=== PATIENT | female | born 1980 | race Caucasian/White ===

== ENCOUNTER 2020-02-17 10:58 | Emergency (ER) | payer OTHER ==
[~2020-02-17] VITALS: Ht 170.2 cm; Wt 81.0 kg
[2020-02-17 11:39] LABS: BASO % 1 % (0-3); EOS # 0.1 x10^3/uL (0.0-0.7); EOS % 2 % (0-3); HEMATOCRIT 41.6 % (36.0-47.0); HEMOGLOBIN 14.2 g/dL (12.0-15.5); LYMPH # 1.9 x10^3/uL (1.0-4.8); LYMPH % 33 % (24-48); MEAN CORPUSCULAR HEMOGLOBIN 28 pg (25-35); MEAN CORPUSCULAR HGB CONC 34 g/dL (31-37); MEAN CORPUSCULAR VOLUME 83 fL (79-100); MONO # 0.5 x10^3/uL (0.0-1.1); MONO % 8 % (0-9); NEUT # 3.2 x10^3uL (1.8-7.7); NEUT % 56 % (31-73); PLATELET COUNT 236 x10^3/uL (140-400); RED BLOOD COUNT 5.02 x10^6/uL (3.50-5.40); RED CELL DISTRIBUTION WIDTH 13.8 % (11.5-14.5); WHITE BLOOD COUNT 5.7 x10^3/uL (4.0-11.0)
--- NOTE | 2020-02-17 11:41 | RAD ---
INDICATION: Palpitations COMPARISON: None. FINDINGS: 2 view of chest obtained. No focal airspace consolidation. Cardiomediastinal contour unremarkable. No acute osseous abnormality. IMPRESSION: * No focal airspace consolidation or edema. Electronically signed by: Jesus Manuel Segura MD (02/17/2020 11:39 AM) [id number]
--- NOTE | 2020-02-17 11:43 | EKG ---
[address] [address] Test Date: 2020-02-17 Test Time: 11:29:55 Pat Name: FREDY CARTAGENA Department: Room: Gender: F [employer] Instructor: : 1980 Requested By: HODAN MURO Order Number: [id number] Reading MD: Darrin Ma MD Measurements Intervals [place] Rate: 75 P: 43 OH: 136 QRS: 74 QRSD: 90 T: 42 QT: 378 QTc: 425 Interpretive Statements SINUS RHYTHM Electronically Signed On 02-20-2020 14:17:54 CDT by Darrin Ma MD
[2020-02-17 11:48] LABS: CALCIUM 9.1 mg/dL (8.5-10.1); CREATININE 0.7 mg/dL (0.6-1.0); GFR 92.7; POTASSIUM 3.6 mmol/L (3.5-5.1)
[2020-02-17 11:55] LABS: ALBUMIN 3.9 g/dL (3.4-5.0); TOTAL BILIRUBIN 1.4 mg/dL (0.2-1.0); TOTAL PROTEIN 7.7 g/dL (6.4-8.2)
--- NOTE | 2020-02-17 11:58 | PHYS DOC ---
Past History Past Medical History: Other Additional Past Medical Histor: Hashimotos Past Surgical History: Cholecystectomy Additional Past Surgical Histo: knee Alcohol Use: None General Adult EDM: Chief Complaint: Palpitations HPI: HPI: 39-year-old female presents with various symptoms including palpitations. She has had intermittent temperature regulation issues over the last several days. She has also had intermittent palpitations, but she wears a heart monitor watch and her heart rate has been normal. She admits to drinking more caffeine over the last 30 days than normal. She has tried to cut back the last couple of days and has had headaches from it. She has had some mild shortness of breath intermittently as well. The patient just does not know what all the symptoms are about. She does admit that she has some anxiety and the symptoms tend to be associated with that when she has those episodes. She also tells me that she is on levothyroxine and just had her level checked yesterday. She has not had a checked in about a year. She has been on thyroid replacement for 3 years. She denies fever. No history of cardiac problems. No other significant medical history other than hypothyroid. Review of Systems: Review of Systems: Constitutional: Denies fever or chills Eyes: Denies change in visual acuity HENT: Denies nasal congestion or sore throat Respiratory: Shortness of breath Cardiovascular: Palpitations GI: Denies abdominal pain, nausea, vomiting, bloody stools or diarrhea : Denies dysuria Musculoskeletal: Denies back pain or joint pain Integument: Denies rash Neurologic: Denies headache, focal weakness or sensory changes Endocrine: Denies polyuria or polydipsia Lymphatic: Denies swollen glands Psychiatric: Denies depression or anxiety Heart Score: HEART Score for Chest Pain: HEART Score for Chest Pain Response (Comments) Value History Slighlty/Non-Suspicious 0 ECG Normal 0 Age < 45 0 Risk Factors No Risk Factors 0 Troponin < Normal Limit 0 Total 0 Risk Factors: Risk Factors: DM, Current or recent (<one month) smoker, HTN, HLP, family history of CAD, obesity. Risk Scores: Score 0 - 3: 2.5% MACE over next 6 weeks - Discharge Home Score 4 - 6: 20.3% MACE over next 6 weeks - Admit for Clinical Observation Score 7 - 10: 72.7% MACE over next 6 weeks - Early Invasive Strategies Physical Exam: PE: Constitutional: Well developed, well nourished, no acute distress, non-toxic appearance. [] HENT: Normocephalic, atraumatic, bilateral external ears normal, oropharynx moist, no oral exudates, nose normal. [] Eyes: PERRLA, EOMI, conjunctiva normal, no discharge. [] Neck: Normal range of motion, no tenderness, supple, no stridor. [] Cardiovascular: Heart rate regular rhythm, no murmur [] Lungs & Thorax: Bilateral breath sounds clear to auscultation [] Abdomen: Bowel sounds normal, soft, no tenderness, no masses, no pulsatile masses. [] Skin: Warm, dry, no erythema, no rash. [] Back: No tenderness, no CVA tenderness. [] Extremities: No tenderness, no cyanosis, no clubbing, ROM intact, no edema. [] Neurologic: Alert and oriented X 3, normal motor function, normal sensory function, no focal deficits noted. [] Psychologic: Affect normal, judgement normal, mood concerned. [] Current Patient Data: Labs: Laboratory Tests Test 02/17/20 11:10 White Blood Count 5.7 x10^3/uL (4.0-11.0) Red Blood Count 5.02 x10^6/uL (3.50-5.40) Hemoglobin 14.2 g/dL (12.0-15.5) Hematocrit 41.6 % (36.0-47.0) Mean Corpuscular Volume 83 fL (79-100) Mean Corpuscular Hemoglobin 28 pg (25-35) Mean Corpuscular Hemoglobin Concent 34 g/dL (31-37) Red Cell Distribution Width 13.8 % (11.5-14.5) Platelet Count 236 x10^3/uL (140-400) Neutrophils (%) (Auto) 56 % (31-73) Lymphocytes (%) (Auto) 33 % (24-48) Monocytes (%) (Auto) 8 % (0-9) Eosinophils (%) (Auto) 2 % (0-3) Basophils (%) (Auto) 1 % (0-3) Neutrophils # (Auto) 3.2 x10^3uL (1.8-7.7) Lymphocytes # (Auto) 1.9 x10^3/uL (1.0-4.8) Monocytes # (Auto) 0.5 x10^3/uL (0.0-1.1) Eosinophils # (Auto) 0.1 x10^3/uL (0.0-0.7) Basophils # (Auto) 0.0 x10^3/uL (0.0-0.2) Sodium Level 140 mmol/L (136-145) Potassium Level 3.6 mmol/L (3.5-5.1) Chloride Level 102 mmol/L (98-107) Carbon Dioxide Level 30 mmol/L (21-32) Anion Gap 8 (6-14) Blood Urea Nitrogen 9 mg/dL (7-20) Creatinine 0.7 mg/dL (0.6-1.0) Estimated GFR (Cockcroft-Gault) 92.7 BUN/Creatinine Ratio 13 (6-20) Glucose Level 114 mg/dL (70-99) H Calcium Level 9.1 mg/dL (8.5-10.1) Total Bilirubin Pending Aspartate Amino Transferase (AST) Pending Alanine Aminotransferase (ALT) Pending Alkaline Phosphatase Pending Total Protein Pending Albumin Pending Albumin/Globulin Ratio Pending Vital Signs: Vital Signs Date Time Temp Pulse Resp B/P (MAP) Pulse Ox O2 Delivery O2 Flow Rate FiO2 02/17/20 11:05 98.9 78 16 121/70 (87) 98 Room Air EKG: EKG: Sinus rhythm, rate 75, normal axis, no ST elevations or depressions [] Radiology/Procedures: Radiology/Procedures: [] Impressions: INDICATION: Palpitations COMPARISON: None. FINDINGS: 2 view of chest obtained. No focal airspace consolidation. Cardiomediastinal contour unremarkable. No acute osseous abnormality. IMPRESSION: * No focal airspace consolidation or edema. Electronically signed by: [place] Segura MD (02/17/2020 11:39 AM) [id number] DICTATED AND SIGNED BY: [place] SEGURA MD DATE: 02/17/20 1139 CC: HODAN MURO DO; PCP,NO ~ Course & Med Decision Making: Course & Med Decision Making Pertinent Labs and Imaging studies reviewed. (See chart for details) The patient's EKG is unremarkable. Her chest x-ray is negative for acute findings. Her labs are unremarkable. Her troponin is negative. The patient's urinalysis does suggest UTI with greater than 40 white cells and leukocyte esterase. I will treat her for 5 days of Macrobid. The patient's symptoms could be related to her thyroid. Since she just had her labs drawn yesterday, I told her it was important to follow these up next week. This does not appear to be cardiopulmonary in origin. There is also an outside chance that this is COVID-19 as it also has unusual clusters of symptoms. She is stable for discharge at this time. [] Dragon Disclaimer: Kitty Disclaimer: This electronic medical record was generated, in whole or in part, using a voice recognition dictation system. Departure Departure: Impression: Primary Impression: Palpitations Additional Impression: UTI (urinary tract infection) Qualified Codes: N30.01 - Acute cystitis with hematuria Disposition: HOME/RESIDENCE PRIOR TO ADM Condition: STABLE Referrals: [facility] (PCP) Patient Instructions: Palpitations, Bvni-ci-Jcix Scripts Nitrofurantoin Monohyd/M-Cryst (MACROBID 100 MG CAPSULE) 100 Mg Capsule 1 CAP PO BID for UTI for 5 Days, #10 CAP 0 Refills Prov: HODAN MURO DO 02/17/20 HODAN MURO DO February 17, 2020 11:58
[2020-02-17 12:50] VITALS: BP 104/65
[2020-02-17 12:53] LABS: BACTERIA,URINE MOD /HPF (0-FEW); BILIRUBIN,URINE NEG (NEG); CLARITY,URINE CLOUDY; COLOR,URINE YELLOW; GLUCOSE,URINE NEG (NEG); NITRITE,URINE NEG (NEG); UROBILINOGEN,URINE 0.2 mg/dL (0.2 mg/dL); WBC,URINE >40 /HPF (0-4)
[2020-02-17 12:54] LABS: SQUAMOUS EPITHELIAL CELL,UR MOD /LPF
[2020-02-17] MEDS ORDERED: NITR100C62 PO (12:57)
== END 2020-02-17 13:00 | disposition home or self-care (01) ==
LOC: ER 10:58
DX: N30.01 Acute cystitis with hematuria (principal); R00.2 Palpitations; R51 Headache; R06.02 Shortness of breath; Z90.49 Acquired absence of other specified parts of digestive tract; Z98.890 Other specified postprocedural states
CPT/HCPCS: 36415; 71046; 80053; 81001; 84484; 85025; 87086; 93005; 99285

== ENCOUNTER 2020-05-05 21:32 | Emergency (ER) | payer OTHER ==
[~2020-05-05] VITALS: Ht 170.2 cm; Wt 81.0 kg
[~2020-05-05 21:32] MED LIST: NITR100C62 PO
[2020-05-05 22:24] LABS: BACTERIA,URINE 0 /HPF (0-FEW); BILIRUBIN,URINE NEG (NEG); CLARITY,URINE CLEAR; COLOR,URINE YELLOW; GLUCOSE,URINE NEG (NEG); NITRITE,URINE NEG (NEG); RBC,URINE OCC /HPF (0-2); SQUAMOUS EPITHELIAL CELL,UR MOD /LPF; UROBILINOGEN,URINE 0.2 mg/dL (0.2 mg/dL); WBC,URINE OCC /HPF (0-4)
[2020-05-05 22:26] LABS: U PREG PATIENT NEGATIVE (NEG)
--- NOTE | 2020-05-06 00:12 | PHYS DOC ---
Past History Past Medical History: Hypothyroid, Other Additional Past Medical Histor: Hashimotos Past Surgical History: Cholecystectomy Additional Past Surgical Histo: knee Alcohol Use: None General Adult EDM: Chief Complaint: URINARY FREQUENCY HPI: HPI: 40-year-old female past medical history significant for Lidya's thyroiditis with hypothyroidism, presents to the ED with complaints of multiple, intermittent episodes, of right flank pain that was "throbbing," lasting for 15- 20 seconds and " it felt like he needed to pee." Reports history of UTI 2 months ago and states she has increased urinary frequency but no pain/burning/dysuria. Reports symptoms have resolved but she wanted to get checked out. no FH DM. ROS: Denies associated fever, chills, cough, sore throat, nausea, vomiting, diarrhea, hematuria, vaginal bleeding, abdominal pain, chest pain, dyspnea, hemoptysis, leg swelling, rash, joint swelling or pain, polydipsia, headache, neck stiffness, diaphoresis. Allergies: Allergies: Allergies Coded Allergies Type Severity Reaction Last Updated Verified Penicillins Allergy Unknown 02/17/20 Yes Sulfa (Sulfonamide Antibiotics) Allergy Unknown 02/17/20 Yes Physical Exam: PE: Constitutional: Well developed, well nourished, no acute distress, non-toxic appearance. [] HENT: Normocephalic, atraumatic, bilateral external ears normal, oropharynx moist, no oral exudates, nose normal. [] Eyes: EOMI, conjunctiva normal, no discharge. [] Neck: Normal range of motion, no tenderness, supple, no stridor. [] Cardiovascular:Heart rate regular rhythm, no murmur [] Lungs & Thorax: Bilateral breath sounds clear to auscultation [] Abdomen: Bowel sounds normal, soft, no tenderness, no masses, no pulsatile mass es. [] Skin: Warm, dry, no erythema, no rash. [] Back: No tenderness, no CVA tenderness. [] Asymptomatic on initial evaluation Extremities: No tenderness, no cyanosis, no clubbing, ROM intact, no edema. [] Neurologic: Alert and oriented X 3, normal motor function, normal sensory function, no focal deficits noted. [] Psychologic: Affect normal, judgement normal, mood normal. [] Current Patient Data: Labs: Laboratory Tests Test 05/05/20 21:35 Urine Collection Type Unknown Urine Color Yellow Urine Clarity Clear Urine pH 5.5 Urine Specific [place] >=1.030 Urine Protein Neg (NEG-TRACE) Urine Glucose (UA) Neg mg/dL (NEG) Urine Ketones (Stick) Neg mg/dL (NEG) Urine Blood Small (NEG) Urine Nitrite Neg (NEG) Urine Bilirubin Neg (NEG) Urine Urobilinogen Dipstick 0.2 mg/dL (0.2 mg/dL) Urine Leukocyte Esterase Neg (NEG) Urine RBC Occ /HPF (0-2) Urine WBC Occ /HPF (0-4) Urine Squamous Epithelial Cells Mod /LPF Urine Bacteria 0 /HPF (0-FEW) Urine Test Negative (NEG) Vital Signs: Vital Signs Date Time Temp Pulse Resp B/P (MAP) Pulse Ox O2 Delivery O2 Flow Rate FiO2 05/05/20 21:32 98.1 69 18 118/64 (82) 97 Room Air EKG: EKG: [] Radiology/Procedures: Radiology/Procedures: [] Course & Med Decision Making: Course & Med Decision Making Pertinent Labs and Imaging studies reviewed. (See chart for details) Concern for right flank pain, pain did recur one time in ED and was reproducible-located between right lower ribs. Glucose is normal, urinalysis with no signs of infection. I suspect MSK origin vs possible stone in a well appearing female, in no distress. Life-threatening processes were considered but are low suspicion given patient's history and physical exam. Will treat conservatively with Lidoderm patch and muscle relaxers. Strict ED return precautions were given for severe pain, fever or dehydration. Encourage PMD follow-up in 24 to 40 hours. All patient's questions were answered and she was stable at time of discharge. Differential includes aortic dissection, aortic aneurysm, acute coronary syndrome, surgical abdomen (appendicitis, cholecystitis, ischemic bowel, strangulated hernia, etc), bowel obstruction or volvulus, bladder outlet obstruction, inflammatory bowel disease, peptic ulcer disease, sepsis, diverticular disease, ureterolithiasis, nephrolithiasis, I spoken with the patient and her caregivers. I explained the patient's condition, diagnoses and treatment plan based on the information available to me at this time. I have answered the patient and her caregiver's questions and addressed any concerns. The patient and her caregivers have a good understanding of patient's diagnosis, condition and treatment plan as can be expected at this point. Vital signs have been stable. Patient's condition is stable and appropriate for discharge from the emergency department. Patient will pursue further outpatient evaluation with primary care physician or other designated or consulting physician as outlined in the discharge i nstructions. The patient and/or caregivers are agreeable to this plan of care and follow-up instructions have been explained in detail. The patient and/or caregivers have received these instructions in written form and have expressed an understanding of the discharge instructions. The patient and/or caregivers are aware that any significant change of condition or worsening of symptoms should prompt immediate return to this or the closest emergency department or call to 911. [employer] Disclaimer: [employer] Disclaimer: This electronic medical record was generated, in whole or in part, using a voice recognition dictation system. Departure Departure: Impression: Primary Impression: Right flank pain Additional Impression: Increased urinary frequency Disposition: HOME/RESIDENCE PRIOR TO ADM Condition: STABLE Referrals: PCP,UNKNOWN (PCP) ERICK DONIS MD Patient Instructions: Flank Pain Scripts Lidocaine/Menthol (LIDOPATCH) 1 Each Adh..patch 1 CURT TP BID for pain for 30 Days, #8 EACH 0 Refills Prov: ALEX RODRIGUEZ DO 05/06/20 Cyclobenzaprine Hcl (CYCLOBENZAPRINE HCL) 5 Mg Tablet 1 TAB PO TID for pain, #20 TAB Prov: ALEX RODRIGUEZ DO 05/06/20 Justification of Admission: Justification of Admission: Justification of Admission Dx: N/A ALEX RODRIGUEZ DO May 06, 2020 00:12
[2020-05-06 01:00] VITALS: BP 115/64
[2020-05-06] MEDS ORDERED: LIDO1ADH TP (01:01)
[2020-05-06] MEDS ORDERED: CYCL5TAB PO (01:01)
== END 2020-05-06 01:10 | disposition home or self-care (01) ==
LOC: ER 21:32
DX: R10.9 Unspecified abdominal pain (principal); R35.0 Frequency of micturition; E03.9 Hypothyroidism, unspecified; Z87.440 Personal history of urinary (tract) infections; Z90.49 Acquired absence of other specified parts of digestive tract; Z88.0 Allergy status to penicillin; Z88.2 Allergy status to sulfonamides
CPT/HCPCS: 81001; 81025; 82947; 99283

== ENCOUNTER 2020-06-28 13:35 | Emergency (ER) | payer OTHER ==
[~2020-06-28] VITALS: Ht 167.6 cm; Wt 71.6 kg
[~2020-06-28 13:35] MED LIST changes: +CYCL5TAB PO; +LIDO1ADH TP
[2020-06-28 14:02] VITALS: BP 131/75
[2020-06-28] MEDS ORDERED: IV NORMAL SALINE 1,000ML 1,000 ML IV ONE ×3 (15:00→17:45)
[2020-06-28] MEDS ORDERED: ONDANSETRON PF 4 MG/2 ML VIAL. IVP ONE (15:00)
[2020-06-28 15:08] LABS: BASO % 0 % (0-3); EOS # 0.1 x10^3/uL (0.0-0.7); EOS % 1 % (0-3); HEMATOCRIT 49.1 % (36.0-47.0); HEMOGLOBIN 16.4 g/dL (12.0-15.5); LYMPH # 1.3 x10^3/uL (1.0-4.8); LYMPH % 13 % (24-48); MEAN CORPUSCULAR HEMOGLOBIN 29 pg (25-35); MEAN CORPUSCULAR HGB CONC 34 g/dL (31-37); MEAN CORPUSCULAR VOLUME 86 fL (79-100); MONO # 1.1 x10^3/uL (0.0-1.1); MONO % 11 % (0-9); NEUT # 7.6 x10^3uL (1.8-7.7); NEUT % 75 % (31-73); PLATELET COUNT 268 x10^3/uL (140-400); RED BLOOD COUNT 5.72 x10^6/uL (3.50-5.40); RED CELL DISTRIBUTION WIDTH 13.4 % (11.5-14.5); WHITE BLOOD COUNT 10.1 x10^3/uL (4.0-11.0)
[2020-06-28 15:14] LABS: CALCIUM 10.1 mg/dL (8.5-10.1); CREATININE 0.9 mg/dL (0.6-1.0); POTASSIUM 3.9 mmol/L (3.5-5.1)
[2020-06-28 15:20] LABS: ALBUMIN 4.6 g/dL (3.4-5.0); ALBUMIN/GLOBULIN RATIO 0.9 (1.0-1.7); TOTAL BILIRUBIN 2.4 mg/dL (0.2-1.0); TOTAL PROTEIN 9.7 g/dL (6.4-8.2)
--- NOTE | 2020-06-28 15:38 | RAD ---
EXAM: CHEST 1 VIEW History: Cough COMPARISON: 02/17/2020 TECHNIQUE: Single portable radiograph of the chest FINDINGS: The cardiac silhouette is unremarkable. The lungs are clear bilaterally. The costophrenic sulci are clear and well demarcated. IMPRESSION: No radiographic evidence of an acute cardiopulmonary process. Electronically signed by: Gary Gavin MD (06/28/2020 3:35 PM) [id number]
--- NOTE | 2020-06-28 15:54 | PHYS DOC ---
Past History Past Medical History: Hypothyroid, Other Additional Past Medical Histor: Hashimotos Past Surgical History: Cholecystectomy Additional Past Surgical Histo: knee Alcohol Use: None General Adult EDM: Chief Complaint: DIARRHEA HPI: HPI: Patient is a 40-year-old female who presented to ER presented to ER today for evaluation of nausea vomiting diarrhea cough and chill since last Wednesday. Patient said her children had the same problem and they got better. Patient says she got better couple days ago then last night she is started eating normal again and then start having severe diarrhea. Patient has history of IBS. Patient said her children were tested negative for COVID-19. Patient had some nonproductive cough. Patient denied any fever today. Review of Systems: Review of Systems: Constitutional: Denies fever or chills Eyes: Denies change in visual acuity HENT: Positive for nasal congestion, sore throat. Respiratory: Positive for nonproductive cough, no trouble breathing Cardiovascular: Denies chest pain or edema GI: Positive for abdominal pain, nausea vomiting, diarrhea. : Denies dysuria Musculoskeletal: Denies back pain or joint pain Integument: Denies rash Neurologic: Denies headache, focal weakness or sensory changes Endocrine: Denies polyuria or polydipsia Lymphatic: Denies swollen glands Psychiatric: Denies depression or anxiety Heart Score: Risk Factors: Risk Factors: DM, Current or recent (<one month) smoker, HTN, HLP, family h istory of CAD, obesity. Risk Scores: Score 0 - 3: 2.5% MACE over next 6 weeks - Discharge Home Score 4 - 6: 20.3% MACE over next 6 weeks - Admit for Clinical Observation Score 7 - 10: 72.7% MACE over next 6 weeks - Early Invasive Strategies Current Medications: Current Meds: Current Medications Medications (Trade) Dose Ordered Sig/Abebe Start Time Stop Time Status Last Admin Dose Admin Ondansetron HCl (Zofran) 4 mg 1X ONCE 06/28/20 15:06/28/20 15:02 DC Sodium Chloride 1,000 ml @ 1,000 mls/hr 1X ONCE 06/28/20 15:00 06/28/20 15:59 Allergies: Allergies: Allergies Coded Allergies Type Severity Reaction Last Updated Verified Penicillins Allergy Unknown 02/17/20 Yes Sulfa (Sulfonamide Antibiotics) Allergy Unknown 02/17/20 Yes Physical Exam: PE: Constitutional: Well developed, well nourished, no acute distress, non-toxic appearance. [] HENT: Normocephalic, atraumatic, bilateral external ears normal, oropharynx moist, no oral exudates, nose normal. [] Eyes: PERRLA, EOMI, conjunctiva normal, no discharge. [] Neck: Normal range of motion, no tenderness, supple, no stridor. [] Cardiovascular:Heart rate regular rhythm, no murmur [] Lungs & Thorax: Bilateral breath sounds clear to auscultation [] Abdomen: Bowel sounds normal, soft, no tenderness, no masses, no pulsatile masses. [] Skin: Warm, dry, no erythema, no rash. [] Back: No tenderness, no CVA tenderness. [] Extremities: No tenderness, no cyanosis, no clubbing, ROM intact, no edema. [] Neurologic: Alert and oriented X 3, normal motor function, normal sensory function, no focal deficits noted. [] Psychologic: Affect normal, judgement normal, mood normal. [] Current Patient Data: Labs: Laboratory Tests Test 06/28/20 14:56 White Blood Count 10.1 x10^3/uL (4.0-11.0) Red Blood Count 5.72 x10^6/uL (3.50-5.40) H Hemoglobin 16.4 g/dL (12.0-15.5) H Hematocrit 49.1 % (36.0-47.0) H Mean Corpuscular Volume 86 fL (79-100) Mean Corpuscular Hemoglobin 29 pg (25-35) Mean Corpuscular Hemoglobin Concent 34 g/dL (31-37) Red Cell Distribution Width 13.4 % (11.5-14.5) Platelet Count 268 x10^3/uL (140-400) Neutrophils (%) (Auto) 75 % (31-73) H Lymphocytes (%) (Auto) 13 % (24-48) L Monocytes (%) (Auto) 11 % (0-9) H Eosinophils (%) (Auto) 1 % (0-3) Basophils (%) (Auto) 0 % (0-3) Neutrophils # (Auto) 7.6 x10^3uL (1.8-7.7) Lymphocytes # (Auto) 1.3 x10^3/uL (1.0-4.8) Monocytes # (Auto) 1.1 x10^3/uL (0.0-1.1) Eosinophils # (Auto) 0.1 x10^3/uL (0.0-0.7) Basophils # (Auto) 0.0 x10^3/uL (0.0-0.2) Sodium Level 137 mmol/L (136-145) Potassium Level 3.9 mmol/L (3.5-5.1) Chloride Level 100 mmol/L (98-107) Carbon Dioxide Level 24 mmol/L (21-32) Anion Gap 13 (6-14) Blood Urea Nitrogen 12 mg/dL (7-20) Creatinine 0.9 mg/dL (0.6-1.0) Estimated GFR (Cockcroft-Gault) 69.0 BUN/Creatinine Ratio 13 (6-20) Glucose Level 107 mg/dL (70-99) H Calcium Level 10.1 mg/dL (8.5-10.1) Total Bilirubin 2.4 mg/dL (0.2-1.0) H Aspartate Amino Transferase (AST) 25 U/L (15-37) Alanine Aminotransferase (ALT) 54 U/L (14-59) Alkaline Phosphatase 77 U/L (46-116) Total Protein 9.7 g/dL (6.4-8.2) H Albumin 4.6 g/dL (3.4-5.0) Albumin/Globulin Ratio 0.9 (1.0-1.7) L Lipase 92 U/L (73-393) Vital Signs: Vital Signs Date Time Temp Pulse Resp B/P (MAP) Pulse Ox O2 Delivery O2 Flow Rate FiO2 06/28/20 14:02 98.4 65 14 131/75 (93) 95 Room Air EKG: EKG: [] Radiology/Procedures: Radiology/Procedures: [][address] [id number] IMAGING REPORT Signed PATIENT: FREDY CARTAGENA ACCOUNT: [id number] : 1980 LOCATION: ER AGE: 40 SEX: F EXAM STATUS: REG ER ORD. PHYSICIAN: DAPHNE PUAG DO REASON: cough PROCEDURE: CHEST AP ONLY EXAM: CHEST 1 VIEW History: Cough COMPARISON: 02/17/2020 TECHNIQUE: Single portable radiograph of the chest FINDINGS: The cardiac silhouette is unremarkable. The lungs are clear bilaterally. The costophrenic sulci are clear and well demarcated. IMPRESSION: No radiographic evidence of an acute cardiopulmonary process. Electronically signed by: Gary Gavin MD (06/28/2020 3:35 PM) [id number] DICTATED AND SIGNED BY: GARY GAVIN MD DATE: 06/28/20 1535 CC: PCP,UNKNOWN; DAPHNE PUGA DO ~ Course & Med Decision Making: Course & Med Decision Making Pertinent Labs and Imaging studies reviewed. (See chart for details) Patient is a 40-year-old female who was evaluated in ER due to nausea vomiting diarrhea. She was found to be dehydrated, suspect having COVID-19 infection. Patient was given IV fluids, felt much better. Will discharge home with medication to take at home. Patient is amenable to plan of care. Dragon Disclaimer: Dragon Disclaimer: This electronic medical record was generated, in whole or in part, using a voice recognition dictation system. Departure Departure: Impression: Primary Impression: Diarrhea Additional Impressions: Dehydration Suspected 2019-nCoV infection Disposition: HOME/RESIDENCE PRIOR TO ADM Condition: IMPROVED Referrals: PCP,UNKNOWN (PCP) FOLLOW UP WITH YOUR DOCTOR NEXT WEEK Patient Instructions: Dehydration, Adult, Diarrhea Additional Instructions: You have been tested for or diagnosed with COVID-19. It is an infection caused by a new type of coronavirus. COVID-19 will cause cold-like or mild flu symptoms in most. It can cause more severe symptoms like problems breathing in some. There is no treatment for COVID-19. The body will clear the infection over time. Self-care will help to ease discomfort. Steps to Take: Self-Care Rest as needed. Healthy habits may help you feel better. Steps include: Choose healthy foods including fruits and vegetables. Drink water throughout the day. Get plenty of sleep each night. If you smoke, try to quit. It may ease breathing. Avoid alcohol. Keep Others Healthy The virus can spread to others. Droplets are released every time you sneeze or cough. The droplets can get into the mouth, nose, or eyes of people near you and lead to infection. To lower the chances of spreading COVID-19 to others: Stay at home until your doctor has said it is safe to leave. If you tested positive this will mean staying isolated until both of the following are true: At least 7 days have passed since the start of illness. You are free of fever for at least 72 hours without the use of medicine. During this time: - Avoid public areas, events, or transportation. Do not return to work or school until your doctor has said it is safe to do so. - Call ahead if you need to go to a medical center. Let them know you may have COVID-19. It will help them guide you where to go. They may also ask you to wear a facemask when you come to the office. - If you call for emergency medical services, let them know you may have COVID- 19. While at home: - Try to avoid close contact with others. Stay about 6 feet away. - If possible, spend most of your time in a separate room from others. - Use a face mask if you will be in close contact with others such as sharing a room or vehicle. - Have someone wipe down common surfaces in the home. Use household time stamp assembler every day on areas like doorknobs, counters, or sinks. - Cough or sneeze into a tissue. Throw the tissue away right after use. If a tissue is not available, cough or sneeze into your elbow. - Wash your hands often. Wash them after sneezing or coughing. Use soap and water and wash for at least 20 seconds. Alcohol based hand cabin cleaner can be used if soap and water is not available. - Do not prepare food for others. Avoid sharing personal items like forks, spoons, or toothbrushes. - Avoid close contact with pets while you are sick. There is no evidence of the virus passing to pets. This is a safety step until more is known about this virus. Isolation can be frustrating. Social interaction can help. Keep in touch with friends and family through phone and tech options. You can still interact with others in your home, just keep a safe distance of about 6 feet. Follow-up: Your doctors office will check in with you to see if there are any changes in your health. You may be asked to keep track of symptoms to share with them. They will also let you know when you are clear to be in public again. Problems to Look Out For: Contact your doctor if your recovery is not going as you expect. Get emergency care if you have problems such as: - Trouble breathing - Nonstop chest pain or pressure - Changes in awareness, confusion, or problems waking - Lips or face have bluish color - Worsening of symptoms If you think you have an emergency, call for emergency medical services right away. As taken from [facility] [place] Health Scripts Ondansetron Hcl (ZOFRAN) 4 Mg Tablet 1 TAB PO Q6HRS PRN for NAUSEA, #12 TAB Prov: DAPHNE PUGA DO 06/28/20 Ciprofloxacin Hcl (CIPRO) 500 Mg Tablet 1 TAB PO BID for DIARRHEA for 3 Days, #6 TAB 0 Refills Prov: DAPHNE PUGA DO 06/28/20 Diphenoxylate Hcl/Atropine (LOMOTIL TABLET) 1 Each Tablet 1 TAB PO TID PRN for DIARRHEA, #12 TAB Prov: DAPHNE PUGA DO 06/28/20 DAPHNE UPGA DO Jun 28, 2020 15:54
[2020-06-28] MEDS ORDERED: CIPROFLOXACIN HCL 500 MG TABLET PO ONE (16:30)
[2020-06-28] MEDS ORDERED: DIPHENOXYLATE/ATROPINE TABLET. PO ONE (16:30)
[2020-06-28] MEDS ORDERED: CIPR500T94 PO (17:48)
[2020-06-28] MEDS ORDERED: DIPH1TAB PO (17:48)
[2020-06-28] MEDS ORDERED: ONDA4TAB7 PO (17:48)
[2020-06-28 18:35] LABS: BACTERIA,URINE 0 /HPF (0-FEW); BILIRUBIN,URINE NEG (NEG); CLARITY,URINE CLOUDY; COLOR,URINE YELLOW; GLUCOSE,URINE NEG (NEG); NITRITE,URINE NEG (NEG); RBC,URINE >40 /HPF (0-2); UROBILINOGEN,URINE 0.2 mg/dL (0.2 mg/dL); WBC,URINE OCC /HPF (0-4)
[2020-06-28 18:36] LABS: AMORPHOUS SEDIMENT,UR PRESENT /HPF
== END 2020-06-28 19:02 | disposition home or self-care (01) ==
LOC: ER 13:35
DX: E86.0 Dehydration (principal); R19.7 Diarrhea, unspecified; E03.9 Hypothyroidism, unspecified; Z03.818 Encounter for observation for suspected exposure to other biological agents ruled out; Z88.0 Allergy status to penicillin; Z88.2 Allergy status to sulfonamides
CPT/HCPCS: 36415; 71045; 80053; 81001; 83690; 85025; 96361; 96374; 99284; J2405; J7030

== ENCOUNTER 2021-07-02 22:27 | Emergency (ER) | payer OTHER ==
[~2021-07-02] VITALS: Ht 167.6 cm; Wt 71.6 kg
[~2021-07-02 22:27] MED LIST changes: +CIPR500T94 PO; +DIPH1TAB PO; +ONDA4TAB7 PO
[2021-07-02 22:30] VITALS: BP 127/71
--- NOTE | 2021-07-02 22:41 | PHYS DOC ---
Past History Past Medical History: Hypothyroid, Other Additional Past Medical Histor: Hashimotos Past Surgical History: Cholecystectomy Additional Past Surgical Histo: knee Alcohol Use: None General Adult EDM: Chief Complaint: SKIN RASH/ABSCESS HPI: HPI: ".. I got this rash about a week or so ago... and went to [facility].... Dr. Luigi Chappell " Patient is a 41 year old female who presents with above hx and complaints rash primarily on lower legs. Patient states she did mow her yard and shorts. The doctor at the emergency room and [facility] felt it was mite bites or insect bites. Since that time she is excoriated the bite areas and now they appear to be infected. Patient has no adenopathy. No striations. Has obvious inflammation of the bite areas. Patient is up-to-date with vaccinations. Is up-to-date with tetanus. No recent travel outside the [place]. No specific ill contacts. Normally healthy. No history immunosuppression. Review of Systems: Review of Systems: Constitutional: Denies fever or chills Eyes: Denies change in visual acuity HENT: Denies nasal congestion or sore throat Respiratory: Denies cough or shortness of breath Cardiovascular: Denies chest pain or edema GI: Denies abdominal pain, nausea, vomiting, bloody stools or diarrhea : Denies dysuria Musculoskeletal: Denies back pain or joint pain Integument: Complains of rash Neurologic: Denies headache, focal weakness or sensory changes Endocrine: Denies polyuria or polydipsia Lymphatic: Denies swollen glands Psychiatric: Denies depression or anxiety Family History: Family History: Noncontributory to presentation Current Medications: Current Meds: See nursing for home meds Allergies: Allergies: Allergies Coded Allergies Type Severity Reaction Last Updated Verified Penicillins Allergy Unknown 02/17/20 Yes Sulfa (Sulfonamide Antibiotics) Allergy Unknown 02/17/20 Yes Physical Exam: PE: Constitutional: Well developed, well nourished, mild distress, non-toxic appearance. [] HENT: Normocephalic, atraumatic, bilateral external ears normal, oropharynx moist, no oral exudates, nose normal. [] Eyes: PERRLA, EOMI, conjunctiva normal, no discharge. [] Neck: Normal range of motion, no tenderness, supple, no stridor. [] Cardiovascular:Heart rate regular rhythm, no murmur [] Lungs & Thorax: Bilateral breath sounds clear to auscultation [] Abdomen: Bowel sounds normal, soft, no tenderness, no masses, no pulsatile masses. [] Skin: Warm, dry, no erythema, rash on lower legs. Back: No tenderness, no CVA tenderness. [] Extremities: No tenderness, no cyanosis, no clubbing, ROM intact, no edema. [] Neurologic: Alert and oriented X 3, normal motor function, normal sensory function, no focal deficits noted. [] Psychologic: Affect anxious, judgement normal, mood normal. [] EKG: EKG: [] Radiology/Procedures: Radiology/Procedures: [] Heart Score: C/O Chest Pain: N/A Risk Factors: Risk Factors: DM, Current or recent (<one month) smoker, HTN, HLP, family history of CAD, obesity. Risk Scores: Score 0 - 3: 2.5% MACE over next 6 weeks - Discharge Home Score 4 - 6: 20.3% MACE over next 6 weeks - Admit for Clinical Observation Score 7 - 10: 72.7% MACE over next 6 weeks - Early Invasive Strategies Course & Med Decision Making: Course & Med Decision Making Pertinent Labs and Imaging studies reviewed. (See chart for details) Do warm compresses with salt water or Epson salts or may use bath water or salt or Epson salts 4 times a day. Afterwards massage and Polysporin. Take Benadryl 25 to 50 mg 4 times a day for itching. Also take Tylenol and ibuprofen for discomfort. Patient take doxycycline 100 mg twice a day for the next 10 days. Afterwards complete a dose of Diflucan 100 mg a day for 3 days. Follow-up primary care. Return if any concerns. Avoid scratching the lesions. Impression: 1. Rash-suspect chigger bites/versus contact dermatitis 2. Cellulitis [] Dragon Disclaimer: Dragon Disclaimer: This electronic medical record was generated, in whole or in part, using a voice recognition dictation system. Departure Departure: Referrals: LASHELL RAMIRES (PCP) Scripts Fluconazole (DIFLUCAN) 100 Mg Tablet 100 MG PO DAILY for post antibiotic for 3 Days, #3 TAB Prov: MYRNA MORTON MD 07/03/21 Doxycycline Monohydrate (DOXYCYCLINE MONOHYDRATE) 100 Mg Capsule 100 MG PO BID for cellulitis for 10 Days, #20 CAP Prov: MYRNA MORTON MD 07/03/21 MYRNA MORTON MD Jul 02, 2021 22:41
[2021-07-02] MEDS: predniSONE 10 MG TABLET. PO ONE (23:37)
[2021-07-03] MEDS ORDERED: DOXY-181 PO (00:25)
[2021-07-03 00:26] LABS: BILIRUBIN,URINE NEG (NEG); CLARITY,URINE CLEAR; COLOR,URINE YELLOW; GLUCOSE,URINE NEG (NEG); NITRITE,URINE NEG (NEG); UROBILINOGEN,URINE 0.2 mg/dL (0.2 mg/dL)
[2021-07-03 00:27] LABS: BACTERIA,URINE FEW /HPF (0-FEW); SQUAMOUS EPITHELIAL CELL,UR MOD /LPF
[2021-07-03] MEDS ORDERED: FLUC100T7 PO (00:27)
[2021-07-03] MEDS: DOXYCYCLINE HYCLATE 100 MG TABLET PO ONE (00:58)
[2021-07-03] MEDS ORDERED: PRED50TA PO (10:04)
== END 2021-07-03 00:45 | disposition home or self-care (01) ==
LOC: ER 22:27
DX: L03.116 Cellulitis of left lower limb (principal); L03.115 Cellulitis of right lower limb
CPT/HCPCS: 81001; 81025; 99283; J7512

== ENCOUNTER 2021-07-03 09:14 | Emergency (ER) | payer OTHER ==
[~2021-07-03] VITALS: Ht 167.6 cm; Wt 71.6 kg
[~2021-07-03 09:14] MED LIST changes: +DOXY-181 PO; +FLUC100T7 PO
[2021-07-03 09:57] VITALS: BP 110/66
[2021-07-03] MEDS ORDERED: predniSONE 10 MG TABLET. PO ONE (10:00)
[2021-07-03] MEDS ORDERED: PRED50TA PO (10:04)
--- NOTE | 2021-07-03 10:05 | PHYS DOC ---
Past History Past Medical History: Hypothyroid, Other Additional Past Medical Histor: Hashimotos, eczema Past Surgical History: Cholecystectomy Additional Past Surgical Histo: acl Alcohol Use: None General Adult EDM: Chief Complaint: UPPER EXTREMITY PAIN HPI: HPI: 41-year-old female presents with bilateral wrist pressure and hand tingling. 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 She has been working 12 to 14-hour days, mostly on a computer. The last couple days she has been at a desk with poor ergonomics. She woke up this morning with this tingly feeling in the palms of both hands. She also has a tightness in the distal half of her forearms. This feeling has not really gone away and she became concerned so she came into the ER. She never had this before. She denies falls, trauma. She h as no other complaints at this time. Review of Systems: Review of Systems: Constitutional: Denies fever or chills Eyes: Denies change in visual acuity HENT: Denies nasal congestion or sore throat Respiratory: Denies cough or shortness of breath Cardiovascular: Denies chest pain or edema GI: Denies abdominal pain, nausea, vomiting, bloody stools or diarrhea : Denies dysuria Musculoskeletal: Bilateral hand numbness and forearm pain Integument: Denies rash Neurologic: Denies headache, focal weakness or sensory changes Endocrine: Denies polyuria or polydipsia Lymphatic: Denies swollen glands Psychiatric: Denies depression or anxiety Current Medications: Current Meds: Current Medications Medications (Trade) Dose Ordered Sig/[facility] Start Time Stop Time Status Last Admin Dose Admin Prednisone (Prednisone) 50 mg 1X ONCE 07/03/21 10:00 07/03/21 10:01 UNV Allergies: Allergies: Allergies Coded Allergies Type Severity Reaction Last Updated Verified Penicillins Allergy Unknown 02/17/20 Yes Sulfa (Sulfonamide Antibiotics) Allergy Unknown 02/17/20 Yes Physical Exam: PE: Constitutional: Well developed, well nourished, no acute distress, non-toxic appearance. [] HENT: Normocephalic, atraumatic, bilateral external ears normal, oropharynx moist, no oral exudates, nose normal. [] Eyes: PERRLA, EOMI, conjunctiva normal, no discharge. [] Neck: Normal range of motion, no tenderness, supple, no stridor. [] Cardiovascular:Heart rate regular rhythm, no murmur [] Lungs & Thorax: Bilateral breath sounds clear to auscultation [] Abdomen: Bowel sounds normal, soft, no tenderness, no masses, no pulsatile masses. [] Skin: Warm, dry, no erythema, no rash. [] Back: No tenderness, no CVA tenderness. [] Extremities: No tenderness, no cyanosis, no clubbing, ROM intact, no edema. Positive Tinel's [] Neurologic: Alert and oriented X 3, normal motor function, normal sensory function, no focal deficits noted. [] Psychologic: Affect normal, judgement normal, mood normal. [] EKG: EKG: [] Radiology/Procedures: Radiology/Procedures: [] Heart Score: C/O Chest Pain: N/A Risk Factors: Risk Factors: DM, Current or recent (<one month) smoker, HTN, HLP, family history of CAD, obesity. Risk Scores: Score 0 - 3: 2.5% MACE over next 6 weeks - Discharge Home Score 4 - 6: 20.3% MACE over next 6 weeks - Admit for Clinical Observation Score 7 - 10: 72.7% MACE over next 6 weeks - Early Invasive Strategies Course & Med Decision Making: Course & Med Decision Making Pertinent Labs and Imaging studies reviewed. (See chart for details) Based on the patient's history and exam, I believe she is having carpal tunnel syndrome. This is likely exacerbated by her long hours and her poor ergonomics. I will treat her with prednisone 50 mg for 3 days. I will also recommend that she can use Voltaren gel and cock-up splints as needed. She is stable for discharge at this time. [] Dragon Disclaimer: Kitty Disclaimer: This electronic medical record was generated, in whole or in part, using a voice recognition dictation system. Departure Departure: Impression: Primary Impression: Carpal tunnel syndrome on both sides Disposition: HOME / SELF CARE / HOMELESS Condition: STABLE Referrals: LASHELL RAMIRES (PCP) Patient Instructions: Carpal Tunnel Syndrome, [id number] Additional Instructions: You can also use topical Voltaren gel (or generic equivalent) for your forearm tightness and general muscle aches. Scripts Prednisone (PREDNISONE) 50 Mg Tablet 1 TAB PO DAILY for carpal tunnel for 3 Days, #3 TAB Prov: HODAN MURO DO 07/03/21 HODAN MURO DO Jul 03, 2021 10:05
== END 2021-07-03 10:25 | disposition home or self-care (01) ==
LOC: ER 09:14
DX: G56.03 Carpal tunnel syndrome, bilateral upper limbs (principal); Z88.0 Allergy status to penicillin; Z88.2 Allergy status to sulfonamides; Z90.49 Acquired absence of other specified parts of digestive tract
CPT/HCPCS: 99283

== ENCOUNTER 2021-09-13 19:49 | Emergency (ER) | payer OTHER ==
[~2021-09-13] VITALS: Ht 170.2 cm; Wt 85.7 kg
[~2021-09-13 19:49] MED LIST changes: +PRED50TA PO
--- NOTE | 2021-09-13 19:59 | PHYS DOC ---
Past History Past Medical History: Hypothyroid, Other Additional Past Medical Histor: Hashimotos, eczema Past Surgical History: No Surgical History Additional Past Surgical Histo: acl Alcohol Use: None General Adult EDM: Chief Complaint: CHEST PAIN HPI: HPI: ".. I been having this RT shoulder and chest pain since about 5:30.. it about a 6/10... 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 Pain has been present since 1730 hrs. Patient describes it as kind of aching discomfort. No history of trauma. No history of travel. No history of severe ill contacts. No history of prior cardiac disorders. Has had problems with right arm before from repetitive work at at her place of assignment. No history of coagulopathy. No history of DVTs or pulmonary embolisms. There is a family history on father's side of cardiac disorders. Father had MIs starting at age 60 as well as grandfather. Mother has history of IBS. Patient has past history of Lidya's thyroiditis. Eczema, Review of Systems: Review of Systems: Constitutional: Denies fever or chills Eyes: Denies change in visual acuity HENT: Denies nasal congestion or sore throat Respiratory: Denies cough or shortness of breath Cardiovascular: Complains of right upper chest pain GI: Denies abdominal pain, nausea, vomiting, bloody stools or diarrhea : Denies dysuria Musculoskeletal: Denies back pain or joint pain Integument: Denies rash Neurologic: Denies headache, focal weakness or sensory changes Endocrine: Denies polyuria or polydipsia Lymphatic: Denies swollen glands Psychiatric: Denies depression or anxiety Family History: Family History: Cardiac disorders on father side and IBS problems on mother side Current Medications: Current Meds: See nursing for home meds Allergies: Allergies: Allergies Coded Allergies Type Severity Reaction Last Updated Verified Penicillins Allergy Unknown 02/17/20 Yes Sulfa (Sulfonamide Antibiotics) Allergy Unknown 02/17/20 Yes Physical Exam: PE: Constitutional: Well developed, well nourished, no acute distress, non-toxic appearance. [] HENT: Normocephalic, atraumatic, bilateral external ears normal, oropharynx moist, no oral exudates, nose normal. [] Eyes: PERRLA, EOMI, conjunctiva normal, no discharge. [] Neck: Normal range of motion, no tenderness, supple, no stridor. [] Cardiovascular:Heart rate regular rhythm, no murmur [] Lungs & Thorax: Bilateral breath sounds clear to auscultation [] Abdomen: Bowel sounds normal, soft, no tenderness, no masses, no pulsatile masses. [] Skin: Warm, dry, no erythema, no rash. [] Back: No tenderness, no CVA tenderness. [] Extremities: No tenderness, no cyanosis, no clubbing, ROM intact, no edema. [] Neurologic: Alert and oriented X 3, normal motor function, normal sensory function, no focal deficits noted. [] Psychologic: Affect normal, judgement normal, mood normal. [] Current Patient Data: Vital Signs: Vital Signs Date Time Temp Pulse Resp B/P (MAP) Pulse Ox O2 Delivery O2 Flow Rate FiO2 09/13/21 19:54 EKG: EKG: My interpretation EKG shows a sinus rhythm at 70 bpm. No acute morphology. Time of EKG is 1955 hrs. My interpretation second EKG shows a sinus rhythm at 67 bpm. No acute morphology time of EKG is 2320 hrs. [] Radiology/Procedures: Radiology/Procedures: [][place] [id number] IMAGING REPORT Signed PATIENT: FREDY CARTAGENA ACCOUNT: [id number] : 1980 LOCATION: ER AGE: 41 SEX: F EXAM STATUS: REG ER ORD. PHYSICIAN: MYRNA MORTON MD REASON: cp PROCEDURE: PORTABLE CHEST 1V EXAM: AP View of the chest DATE: 09/13/2021 8:27 PM INDICATION: Reason: cp / Spl. Instructions: / History: COMPARISON: No Prior FINDINGS: The heart is not enlarged. Mediastinal and hilar contours are normal. No focal parenchymal airspace opacity. No pleural effusion or pneumothorax. IMPRESSION: 1. No radiographic evidence for acute cardiopulmonary process. Electronically signed by: Dwayne Georges MD (09/13/2021 8:46 PM) [facility] DICTATED AND SIGNED BY: DWAYNE GEORGES MD DATE: 09/13/212044 CC: LASHELL RAMIRES; MYRNA MORTON MD ~MTH0 0 Heart Score: C/O Chest Pain: Yes HEART Score for Chest Pain: HEART Score for Chest Pain Response (Comments) Value History Slighlty/Non-Suspicious 0 ECG Normal 0 Age < 45 0 Risk Factors No Risk Factors 0 Troponin < Normal Limit 0 Total 0 Risk Factors: Risk Factors: DM, Current or recent (<one month) smoker, HTN, HLP, family history of CAD, obesity. Risk Scores: Score 0 - 3: 2.5% MACE over next 6 weeks - Discharge Home Score 4 - 6: 20.3% MACE over next 6 weeks - Admit for Clinical Observation Score 7 - 10: 72.7% MACE over next 6 weeks - Early Invasive Strategies Course & Med Decision Making: Course & Med Decision Making Pertinent Labs and Imaging studies reviewed. (See chart for details) Take ibuprofen and Tylenol for discomfort. Follow-up primary care if concerned get outpatient stress testing. Consider taking a daily aspirin. Return if any concerns. Take Cipro 500 mg twice a day for next 5 days. Take Diflucan 100 mg x 3 days after completing Cipro. Follow-up urine culture. Impression: 1. Chest wall pain 2. History of Lidya's disease 3. Eczema 4. UTI [] Dragon Disclaimer: Dragon Disclaimer: This electronic medical record was generated, in whole or in part, using a voice recognition dictation system. Departure Departure: Referrals: LASHELL RAMIRES (PCP) Scripts Fluconazole (DIFLUCAN) 100 Mg Tablet 100 MG PO DAILY for post antibiotics for 3 Days, #3 TAB Prov: MYRNA MORTON MD 09/13/21 Ciprofloxacin (CIPRO) 500 Mg/5 Ml [facility]..rec 500 MG PO BID for UTI for 5 Days, MISC Prov: MYRNA MORTON MD 09/13/21 Dragon Disclaimer This chart was dictated in whole or in part using Voice Recognition software in a busy, high-work load, and often noisy Emergency Department environment. It may contain unintended and wholly unrecognized errors or omissions. MYRNA MORTON MD Sep 13, 2021 19:59
[2021-09-13 20:02] VITALS: BP 117/70
[2021-09-13] MEDS ORDERED: ASPIRIN CHEWABLE 81 MG TABLET. PO ONE (20:15)
[2021-09-13] MEDS ORDERED: IV RINGERS SOLUTION,LACTATED 1,000 ML IV SCH (20:15)
[2021-09-13 20:24] LABS: BASO % 1 % (0-3); EOS # 0.2 x10^3/uL (0.0-0.7); EOS % 3 % (0-3); HEMATOCRIT 40.8 % (36.0-47.0); LYMPH # 3.2 x10^3/uL (1.0-4.8); LYMPH % 33 % (24-48); MEAN CORPUSCULAR HEMOGLOBIN 29 pg (25-35); MEAN CORPUSCULAR HGB CONC 34 g/dL (31-37); MEAN CORPUSCULAR VOLUME 85 fL (79-100); MONO # 0.9 x10^3/uL (0.0-1.1); MONO % 9 % (0-9); NEUT # 5.4 x10^3uL (1.8-7.7); NEUT % 55 % (31-73); PLATELET COUNT 218 x10^3/uL (140-400); RED BLOOD COUNT 4.82 x10^6/uL (3.50-5.40); RED CELL DISTRIBUTION WIDTH 13.5 % (11.5-14.5); WHITE BLOOD COUNT 9.8 x10^3/uL (4.0-11.0)
[2021-09-13 20:30] LABS: CREATININE 0.7 mg/dL (0.6-1.0); GFR 91.8; POTASSIUM 3.9 mmol/L (3.5-5.1)
[2021-09-13 20:42] LABS: DIRECT BILIRUBIN 0.2 mg/dL (0.0-0.2); TOTAL BILIRUBIN 1.1 mg/dL (0.2-1.0); TOTAL PROTEIN 7.5 g/dL (6.4-8.2)
--- NOTE | 2021-09-13 20:48 | RAD ---
EXAM: AP View of the chest DATE: 09/13/2021 8:27 PM INDICATION: Reason: cp / Spl. Instructions: / History: COMPARISON: No Prior FINDINGS: The heart is not enlarged. Mediastinal and hilar contours are normal. No focal parenchymal airspace opacity. No pleural effusion or pneumothorax. IMPRESSION: 1. No radiographic evidence for acute cardiopulmonary process. Electronically signed by: Dwayne Faulkner MD (09/13/2021 8:46 PM) [facility]AGE
[2021-09-13 21:21] LABS: AMPHETAMINE/METHAMPHETAMINE NEG (NEG); BARBITURATES NEG (NEG); BENZODIAZEPINES NEG (NEG); CANNABINOIDS NEG (NEG); COCAINE NEG (NEG); METHADONE NEG (NEG); OPIATES NEG (NEG); PHENCYCLIDINE NEG (NEG)
[2021-09-13 21:36] LABS: BACTERIA,URINE FEW /HPF (0-FEW); BILIRUBIN,URINE NEG (NEG); CLARITY,URINE CLEAR; COLOR,URINE YELLOW; GLUCOSE,URINE NEG (NEG); NITRITE,URINE NEG (NEG); SQUAMOUS EPITHELIAL CELL,UR MOD /LPF; UROBILINOGEN,URINE 0.2 mg/dL (0.2 mg/dL)
[2021-09-13] MEDS ORDERED: CIPR500S2 PO (22:05)
[2021-09-13] MEDS ORDERED: FLUC100T7 PO (22:05)
[2021-09-13] MEDS ORDERED: CIPROFLOXACIN HCL 500 MG TABLET PO ONE (22:30)
--- NOTE | 2021-09-13 22:37 | EKG ---
[address] [address] Test Date: 2021-09-13 Test Time: 19:55:36 Pat Name: FREDY CARTAGENA Department: Room: Gender: F [employer]ying [employer]: : 1980 Requested By: MYRNA MORTON Order Number: [id number] Reading MD: Measurements Intervals [place] Rate: 70 P: 48 TX: 132 QRS: 65 QRSD: 92 T: 22 QT: 372 QTc: 404 Interpretive Statements SINUS RHYTHM NORMAL ECG RI6.02 No previous ECG available for comparison
--- NOTE | 2021-09-13 23:25 | EKG ---
[facility] ED [facility] [place] [id number] Test Date: 2021-09-13 Test Time: 23:20:14 Pat Name: FREDY CARTAGENA Department: Room: Gender: F Research Associate Policy: : 1980 Requested By: MYRNA MORTON Order Number: [id number] Reading MD: Measurements Intervals [place] Rate: 67 P: 36 MO: 140 QRS: 58 QRSD: 90 T: 31 QT: 382 QTc: 406 Interpretive Statements SINUS RHYTHM NORMAL ECG RI6.02 No previous ECG available for comparison
[2021-09-13] MEDS ORDERED: MAGNESIUM HYDROXIDE 2,400 MG/30 ML ORAL.SUSP. PO ONE (23:30)
[2021-09-13] MEDS ORDERED: ONDANSETRON PF 4 MG/2 ML VIAL. IVP ONE (23:30)
[2021-09-13] MEDS ORDERED: SUCRALFATE 1 GM TABLET. PO ONE (23:30)
[2021-09-13] MEDS ORDERED: FAMOTIDINE 20 MG/2 ML VIAL IVP ONE (23:30)
== END 2021-09-14 00:30 | disposition home or self-care (01) ==
LOC: ER 19:49
DX: R07.89 Other chest pain (principal); L30.9 Dermatitis, unspecified; N39.0 Urinary tract infection, site not specified; E03.9 Hypothyroidism, unspecified; Z88.0 Allergy status to penicillin; Z88.2 Allergy status to sulfonamides
CPT/HCPCS: 36415; 71045; 80048; 80061; 80076; 80307; 81001; 81025; 82550; 83690; 83735; 83880; 84443; 84484; 85025; 85379; 85610; 85730; 87086; 93005; 96361; 96374; 96375; 99285; J2405; J3490; J7120